=== PATIENT | male | born 1990 | race Caucasian/White ===

== ENCOUNTER 2017-12-05 10:56 | Emergency (ER) | payer OTHER ==
[2017-12-05 11:20] VITALS: BP 126/80
--- NOTE | 2017-12-05 11:46 | UC ---
UC General HPI - HPI Summary HPI Summary: pt is c/o a severe diffuse headache with nausea and vomiting x1. It began this am. states hx of migraines but this is his most severe headache ever. he also c/o subjective fever with chills and sweating. took 600mg IB relief captain with no relief. denies hx of injury. has never had ct or mri of brain. is photo and phono phobic. he thinks this HUERTAS is from reflux for the past 4 days. triage note document diarrhea but pt states that was in the recent past but none now. denies travel hx. - History of Current Complaint Chief Complaint: UCAbdominalPain Stated Complaint: ABD PAIN,CHILLS,VOMTING Time Seen by Provider: 12/05/17 11:21 Hx Obtained From: Patient, Other: - girlfriend Pain Intensity: 7 Aggravating: light and noise Alleviating: nothing Associated Signs & Symptoms: Positive: Diaphoresis, Fever - subjective, Headache , Nausea, Vomiting - once - Allergy/Home Medications Allergies/Adverse Reactions: Allergies Allergy/AdvReac Type Severity Reaction Status Date / Time No Known Allergies Allergy Verified 12/05/17 11:16 Home Medications: Home Medications Dexlansoprazole (NF) [Dexilant (NF)] 60 mg PO DAILY 12/05/17 [History Confirmed 12/05/17] Ibuprofen TAB* [Advil TAB*] 600 mg PO Q6H PRN 12/05/17 [History Confirmed ] PMH/Surg Hx/FS Hx/Imm Hx GI/ History: Gastroesophageal Reflux Neurological History: Migraine - Surgical History Surgical History: Yes Surgery Procedure, Year, and Place: [place]. R ACL repair - Family History Known Family History: Positive: None - Social History Occupation: Employed Full-time Alcohol Use: Occasionally Substance Use Type: None Smoking Status (MU): Heavy Every Day Tobacco Smoker Type: Cigarettes Amount Used/How Often: 3/4 PPD - Immunization History Vaccination Up to Date: Yes Review of Systems Constitutional: Fever - subjective, Chills Skin: Negative Eyes: Negative ENT: Negative Respiratory: Negative Cardiovascular: Negative Gastrointestinal: Vomiting - once, Nausea Genitourinary: Negative Motor: Negative Neurovascular: Negative Musculoskeletal: Negative Neurological: Headache Psychological: Negative Is Patient Immunocompromised?: No All Other Systems Reviewed And Are Negative: Yes Physical Exam Triage Information Reviewed: Yes Appearance: Pain Distress - Lights dimmmed and pt curled up in ball on exam table but sat up for exam. pt allowing nose to run down his front and tears running down his face. Vital Signs: Initial Vital Signs Temp 97.9 F 12/05/17 11:10 Pulse 68 12/05/17 11:10 Resp 18 12/05/17 11:10 BP 126/80 12/05/17 11:10 Pulse Ox 100 12/05/17 11:10 Eyes: Positive: Conjunctiva Clear, Other: - Photophobic. PERRL, EOMI ENT: Positive: Pharynx normal, Nasal congestion, Nasal drainage - clear, TMs normal Neck: Positive: Supple, Nontender, No Lymphadenopathy. Negative: Nuchal Rigidity Respiratory: Positive: Lungs clear, Normal breath sounds Cardiovascular: Positive: RRR, No Murmur Abdomen Description: Positive: Nontender, No Organomegaly, Soft. Negative: Distended, Guarding Bowel Sounds: Positive: Present Musculoskeletal: Positive: ROM Intact Neurological: Positive: Other: - A&O x3. CN 1-12 grossly intact. Steady gait. Gross s/v/m intact x4. Skin Exam: Normal Course/Dx - Course Course Of Treatment: worst HUERTAS ever with subjective f/c's. tx IB relief captain and no relief. no more evaluation to exclude other pathology of HUERTAS aside from migraine as this is not a typical migraine HUERTAS. EMS refused, girlfriend driving pt to ER. Pt is a&o x 3 thus I must respect his refusing EMS. [facility] ER called, report give to KENDRA Mabel Farris MUSIC SUPERVISOR. advised of worst HUERTAS with subjective f/c's and tx IB relief captain. - Differential Dx - Multi-Symptom Provider Diagnoses: Severe headache. Subjective fever. Discharge - Sign-Out/Discharge Documenting (check all that apply): Patient Departure - Discharge Plan Condition: Stable Disposition: TRANS HIGHER LVL OF CARE FAC Referrals: No Primary Care Phys,NOPCP [Primary Care Provider] - Additional Instructions: LEAVE HERE AND GO DIRECTLY TO THE [facility] DISCUSSED - Billing Disposition and Condition Condition: STABLE Disposition: Trans Higher Lvl of Care Fac
== END 2017-12-05 11:43 | disposition short-term general hospital (02) ==
LOC: UCCORT 10:56
DX: R51 Headache (principal); R50.9 Fever, unspecified; K21.9 Gastro-esophageal reflux disease without esophagitis; F17.210 Nicotine dependence, cigarettes, uncomplicated
CPT/HCPCS: 99202; G0463